=== PATIENT | male | born 2000 | race Caucasian/White ===

== ENCOUNTER 2022-08-12 00:51 | Emergency (ER) | payer OTHER, SELFPAY ==
[2022-08-12] VITALS (11 sets, daily range): BP systolic 121–139; BP diastolic 74–96; PULSE 75–89; RESP 16–18; TEMP 36.4–37.1; O2SAT 93–100; BMI 25.5
--- NOTE | 2022-08-12 01:00 | CRLHL7_ITS ---
For Patients: As a result of the Cures Act, medical imaging exams and procedure reports are released immediately into your electronic medical record. You may view this report before your referring provider. If you have questions, please contact your health care provider. INDICATION: Dislocation, shoulder injury TECHNIQUE: Shoulder radiograph 2 views left COMPARISON: None FINDINGS: Bone: No acute fractures or aggressive bone lesions are identified. Joint: Anterior inferior dislocation of the glenohumeral joint is noted. The acromioclavicular joint is unremarkable. Soft tissue: Unremarkable. The visualized hemithorax is unremarkable in appearance. No radiopaque foreign bodies are seen. IMPRESSION: 1. Anterior inferior dislocation of the glenohumeral joint is noted. Dictated by Raz Salinas MD @ 08/12/2022 1:25:06 AM Dictated by: Raz Salinas MD @ 08/12/2022 01:25:09 (Electronically Signed)
--- NOTE | 2022-08-12 01:14 | CRLHL7_ITS ---
For Patients: As a result of the Century Cures Act, medical imaging exams and procedure reports are released immediately into your electronic medical record. You may view this report before your referring provider. If you have questions, please contact your health care provider. INDICATION: Post reduction, shoulder injury, post-reduction TECHNIQUE: Shoulder radiograph 3 views left COMPARISON: 08/12/2022 FINDINGS: Bone: No acute fractures or aggressive bone lesions are identified. Joint: The glenohumeral joint has been reduced to anatomic alignment. The acromioclavicular joint is unremarkable. Soft tissue: Unremarkable. The visualized hemithorax is unremarkable in appearance. No radiopaque foreign bodies are seen. IMPRESSION: 1. The glenohumeral joint has been reduced to anatomic alignment. Dictated by Raz Salinas MD @ 08/12/2022 2:19:51 AM Dictated by: Raz Salinas MD @ 08/12/2022 02:19:55 (Electronically Signed)
--- NOTE | 2022-08-12 01:19 | ED.UPPEXIN ---
HPI - Extremity Injury (Upper) General Chief Complaint: Shoulder Injury/Pain Stated Complaint: Left Shoulder Injury Time Seen by Provider: 08/12/22 01:00 History of Present Illness HPI narrative: Patient is a healthy 21-year-old gentleman who was wrestling tonight with friend landing on his left arm. I felt a popping sensation in the left shoulder and now he has what appears to be a dislocated left shoulder. He has no neural muscular defects other than the dislocation. He has no head or neck injuries. He has no chest pain shortness a breath bruising there is a slight abrasion on the anterior aspect of the left shoulder but no other injuries are noted. Patient has had no previous dislocations is otherwise in excellent health. Related Data Home Medications Medication Instructions Recorded Confirmed No Known Home Medications 08/12/22 08/12/22 Allergies Allergy/AdvReac Type Severity Reaction Status Date / Time cephalexin Allergy Severe Anaphylaxis Verified 08/12/22 00:56 Sulfa (Sulfonamide Allergy Severe Anaphylaxis Verified 08/12/22 00:56 Antibiotics) latex Allergy Intermediate Hives Verified 08/12/22 00:56 Review of Systems Status of ROS: Reports: 10 or more systems reviewed and unremarkable except as noted in History and below PFSH PFSH Social History Smoking Status: Never smoker Do you use any of these nicotine containing products: None Second hand tobacco smoke exposure: No How often do you have a drink containing alcohol: monthly or less How many standard drinks containing alcohol do you have on a typical day: 1 or 2 How often do you have six or more drinks on one occasion: Never AUDIT-C Alcohol total score: 1 Non-prescribed substance use: denies use Exam Narrative: Exam Narrative: EXAM GENERAL: Patient appears comfortable and well. EYES: No scleral icterus. LYMPH: No supraclavicular or cervical lymphadenopathy. SKIN: Visible skin seen during exam normal or with benign process only. EXT: No dependent lower extremity pedal edema. Left shoulder appears to be anteriorly he displaced. Normal neuromuscular and vascular exam otherwise. HEART: Regular rate and rhythm with no murmurs, rubs, or gallops. LUNGS: Clear to auscultation bilaterally with no crackles or wheezes. ABD: Soft, non tender, non distended. PSYCH: Good eye contact, speech is not pressured. Const: Vital Signs, click to edit/add: Vital Signs - 24 hr 08/12/22 00:57 04/08/23 00:59 Temperature 97.6 F 98.7 F Pulse Rate [Pulse Oximeter] 88 87 Respiratory Rate 16 Blood Pressure [Le ft Upper Arm] 137/96 H Blood Pressure [Ri ght Upper Arm] 137/96 H Pulse Oximetry 100 100 Oxygen Delivery Me thod Room Air Room Air Course Course Hospital Course: X-ray series of the left shoulder is pending. Vital Signs Vital signs: Initial Vital Signs Temperature 97.6 F 08/12/22 00:57 Temperature Source Temporal Artery Scan 08/12/22 00:57 Pulse Rate 88 08/12/22 00:57 Pulse Rhythm Regular 08/12/22 00:57 Respiratory Rate 16 08/12/22 00:57 Blood Pressure 137/96 H 08/12/22 00:57 Blood Pressure Mean 109 08/12/22 00:57 Pulse Oximetry 100 08/12/22 00:57 Oxygen Delivery Method Room Air 08/12/22 00:57 Vital Signs Temperature 97.6 F 08/12/22 00:57 Pulse Rate 88 08/12/22 00:57 Respiratory Rate 16 08/12/22 00:57 Blood Pressure 137/96 H 08/12/22 00:57 Pulse Oximetry 100 08/12/22 00:57 Oxygen Delivery Method Room Air 08/12/22 00:57 Temperature 98.7 F 08/12/22 00:59 Pulse Rate 87 08/12/22 00:59 Respiratory Rate 16 08/12/22 00:57 Blood Pressure 137/96 H 08/12/22 00:59 Pulse Oximetry 100 08/12/22 00:59 Oxygen Delivery Method Room Air 08/12/22 00:59 MDM - Extremity Injury (Upper) MDM Narrative Medical decision making narrative: Patient is a 21-year-old gentleman who dislocated his left shoulder which is seen on x-ray upon mind radiology review. Patient is otherwise uninjured. He had eaten approximately 2-3 hours ago and was not a candidate for propofol. Patient was given 4 Versed no 100 of fentanyl and was suitable anesthesia using the traction countertraction method is able to successfully reduce his shoulder dislocation. Is placed in a shoulder sling and was instructed on care of his shoulder. He will follow up with his doctor back in college on a p.r.n. basis and with Orthopedics if further problems develop. He will advance his activity as tolerated and avoid risky activities which are likely dislocated shoulder again. Differential Diagnosis Differential diagnosis: Likely dislocation of shoulder, fracture of humerus and fracture of clavicle Discharge Plan Discharge Clinical Impression: Anterior shoulder dislocation Patient Disposition: Home, Self-Care Condition: Stable Instructions: Shoulder Dislocation (ED) Additional Instructions: Sling as directed Careful advancement of his activities. Follow-up with orthopedics as needed. Activity Level: No Restrictions Discharge Diet: Regular Prescriptions: No Action No Known Home Medications Stand Alone Forms: [employer] Info Instructions
--- OUTSIDE RECORDS SUMMARY | 2022-08-12 01:26 | XMS_ITS | Continuity of Care Document ---
Author Name Unknown Organization [facility] Address [facility] [address] [place] [address]- Care Team Providers Care Carpet Tile Layer Name Role Phone Vince Rhodes MD Primary Care Physician Encounter 02/24/19 - 02/26/[address] [place], [place] [address] Encounter Diagnosis WCC (well child check)(Discharge Diagnosis) - 02/24/19 Immunization due(Discharge Diagnosis) - 02/24/19 Depression screen(Discharge Diagnosis) - 02/24/19 Encounter for screening examination for sexually transmitted disease(Discharge Diagnosis) - 02/24/19 BMI (body mass index), pediatric, 5% to less than 85% for age(Discharge Diagnosis) - 02/24/19 Scoliosis concern(Discharge Diagnosis) - 02/24/19 Well child check(Discharge Diagnosis) - 02/24/19 Scoliosis(Discharge Diagnosis) - 02/24/19 Attending Physician: Vince Rhodes MD Allergies, Adverse Reactions, Alerts Substance Reaction Severity Status cephalosporin Active sulfa drug Active Assessment and Plan Extracted from: Title:AAA 13-17 year check up/scoliosis Author:Vince Patel MD Date:02/24/19 Impression and Plan Diagnosis Well child check ([id number] Z00.129). Scoliosis ([id number] M41.9). Plan: Immunizations per schedule, We will follow-up his x-ray today. We'll contact back in touch after review the x-ray with radiology., His x-ray shows that his curve is increased to 20??. Because of the change and his age we will get him referred to orthopedics.. Diet: Age appropriate diet, Referral to dentist. Patient Instructions: Counseled: Discussed healthy eating habits, exercise, and school performance. Discussed importance of maintaining a healthy BMI. Stressed importance for healthy relationships., Regular Dental visits strongly recommended., Counseling given on Influenza Vaccination, risks and benefits discussed, VIS offered., Counseling given on HPV vaccine, risks and benefits discussed, VIS offered.. Immunizations Given and Recorded Vaccine Date Status Refusal Reason meningococcal conjugate vaccine 02/24/19 Given meningococcal conjugate vaccine 09/03/14 Given meningococcal group B vaccine 02/24/19 Given human papillomavirus vaccine 02/06/18 Given human papillomavirus vaccine 10/31/16 Given influenza virus vaccine, inactivated 03/08/15 Give n influenza virus vaccine, inactivated 1 03/02/07 Gi mery influenza virus vaccine, inactivated 2 04/03/05 Gi mery influenza virus vaccine, inactivated 3 04/09/03 Gi mery influenza virus vaccine, inactivated 4 03/10/03 Gi mery tetanus/diphth/pertuss (Tdap) adult/adol 09/03/14 Given Hep A, pediatric/adolescent 5 09/05/07 Given Hep A, pediatric/adolescent 6 10/10/06 Given DTaP 7 09/05/07 Given DTaP 8 03/10/03 Given DTaP 9 01/01/03 Given DTaP 10 02 Given IPV 11 09/05/07 Given IPV 12 05/28/03 Given IPV 13 01/01/03 Given IPV 14 02 Given MMR (measles/mumps/rubella) 15 09/05/07 Given MMR (measles/mumps/rubella) 16 08/31/03 Given varicella 17 10/10/06 Given varicella 18 08/31/03 Given pneumococcal (PCV7) 19 09/05/04 Given pneumococcal (PCV7) 20 03/10/03 Given pneumococcal (PCV7) 21 01/01/03 Given pneumococcal (PCV7) 22 02 Given DTaP-Hib 23 11/30/03 Given hepatitis B pediatric vaccine 24 05/28/03 Given Hep B-Hib 25 01/01/03 Given Hep B-Hib 26 02 Given 1Result Comment: Unknown Unit of Measure: UNKNOWNUNIT 2Result Comment: Unknown Unit of Measure: UNKNOWNUNIT 3Result Comment: Unknown Unit of Measure: UNKNOWNUNIT 4Result Comment: Unknown Unit of Measure: UNKNOWNUNIT 5Result Comment: Unknown Unit of Measure: UNKNOWNUNIT 6Result Comment: Unknown Unit of Measure: UNKNOWNUNIT 7Result Comment: Unknown Unit of Measure: UNKNOWNUNIT 8Result Comment: Unknown Unit of Measure: UNKNOWNUNIT 9Result Comment: Unknown Unit of Measure: UNKNOWNUNIT 10Result Comment: Unknown Unit of Measure: UNKNOWNUNIT 11Result Comment: Unknown Unit of Measure: UNKNOWNUNIT 12Result Comment: Unknown Unit of Measure: UNKNOWNUNIT 13Result Comment: Unknown Unit of Measure: UNKNOWNUNIT 14Result Comment: Unknown Unit of Measure: UNKNOWNUNIT 15Result Comment: Unknown Unit of Measure: UNKNOWNUNIT 16Result Comment: Unknown Unit of Measure: UNKNOWNUNIT 17Result Comment: Unknown Unit of Measure: UNKNOWNUNIT 18Result Comment: Unknown Unit of Measure: UNKNOWNUNIT 19Result Comment: Unknown Unit of Measure: UNKNOWNUNIT 20Result Comment: Unknown Unit of Measure: UNKNOWNUNIT 21Result Comment: Unknown Unit of Measure: UNKNOWNUNIT 22Result Comment: Unknown Unit of Measure: UNKNOWNUNIT 23Result Comment: Unknown Unit of Measure: UNKNOWNUNIT 24Result Comment: Unknown Unit of Measure: UNKNOWNUNIT 25Result Comment: Unknown Unit of Measure: UNKNOWNUNIT 26Result Comment: Unknown Unit of Measure: UNKNOWNUNIT Problem List Condition Effective Dates Status Health Status Inform ant Scoliosis(Confirmed) Active Diagnosis Diagnosis Type Effective Dates Health Status Clinical Service Informant [facility] (well child check) Discharge Diagnosis 02/24/19 Immunization due Discharge Diagnosis 02/24/19 Depression screen Discharge Diagnosis 02/24/19 Encounter for screening examination for sexually transmitted disease Discharge Diagnosis 02/24/19 BMI (body mass index), pediatric, 5% to less than 85% for age Discharge Diagnosis 02/24/19 Well child check Discharge Diagnosis 02/24/19 Non-Specified Scoliosis concern Discharge Diagnosis 02/24/19 Non-Specified Scoliosis Discharge Diagnosis 02/24/19 Non-Specified Vital Signs Most recent to oldest [Reference Range]: 1 Height Measured 65.51 in (02/24/19 3:47 PM) Weight Measured 140.6 lb (02/24/19 3:47 PM) Body Mass Index 23.03 kg/m2 (02/24/19 3:47 PM) BSA 1.72 m2 (02/24/19 3:47 PM) Blood Pressure [90-138/45-84 mmHg] 104/6 4mmHg (02/24/19 3:47 PM) Mean Arterial Pressure 77 mmHg (02/24/19 3:47 PM) Allergies Verified? Yes (02/24/19 3:47 PM) Medication History Verified? Yes (02/24/19 3:47 PM) Social History Social History Type Response Smoking Status Never smoker; Concer ns about tobacco use in household: No entered on: 10/31/16
--- OUTSIDE RECORDS SUMMARY | 2022-08-12 01:26 | XMS_ITS | Continuity of Care Document ---
Author Name Unknown Organization [facility] Address [facility] [address] [place] [address]- Care Team Providers Care Platen Drier Operator Name Role Phone Vince Rhodes MD Primary Care Physician Encounter 04/21/20 - 04/23/[address] [place], [place] [address] Encounter Diagnosis Left foot pain(Discharge Diagnosis) - 04/21/20 Well child check(Discharge Diagnosis) - 04/21/20 WCC (well child check)(Discharge Diagnosis) - 04/21/20 Immunization due(Discharge Diagnosis) - 04/21/20 Depression screen(Discharge Diagnosis) - 04/21/20 Encounter for screening examination for sexually transmitted disease(Discharge Diagnosis) - 04/21/20 Attending Physician: Vince Rhodes MD Referring Physician: Vince Rhodes MD Allergies, Adverse Reactions, Alerts Substance Reaction Severity Status cephalosporin Active sulfa drug Active Assessment and Plan Extracted from: Title:AAA 13-17 year check u p/left foot injury Author:Vince Rhodes MD Date:04/21/20 Impression and Plan Diagnosis Well child check ([id number] Z00.129). Left foot pain ([id number] M79.672). Plan: Immunizations per schedule. Diet: Age appropriate diet, Referral to dentist. Patient Instructions: Counseled: Discussed healthy eating habits, exercise, and school performance. Discussed importance of maintaining a healthy BMI. Stressed importance for healthy relationships., Regular Dental visits strongly recommended., Counseling given on Influenza Vaccination, risks and benefits discussed, VIS offered., Counseling given on HPV vaccine, risks and benefits discussed, VIS offered., Reviewed his x-ray. His x-ray has a large sesamoid bone present. There does not appear to be an acute fracture. We will review this with radiology. If radiology feels there is anything acute will send immediately to orthopedics otherwise we will have him go in 5 to 7 days to orthopedics if his pain is still persisting. Recommended ice and elevation. Discussed Montiel Virus crisis and ways to stay mentally and physically healthy including regular bedtime and sleep cycles, structure and routine with school work on a daily basis. Regular exercise, outdoors if possible everyday. Eating whole foods and monitoring electronic time. Make time for regular laughter. Does relate to intermittent vaping. We discussed the importance of stopping this immediately.. Functional Status 04/21/20 Recent Travel History No recent travel Family Member Travel History No recent t ravel Other Exposure to Infectious Disease Unk nown Immunizations Given and Recorded Vaccine Date Status Refusal Reason influenza virus vaccine, inactivated 04/21/20 Give n influenza virus vaccine, inactivated 03/08/15 Give n influenza virus vaccine, inactivated 1 03/02/07 Gi mery influenza virus vaccine, inactivated 2 04/03/05 Gi mery influenza virus vaccine, inactivated 3 04/09/03 Gi mery influenza virus vaccine, inactivated 4 03/10/03 Gi mery meningococcal group B vaccine 04/21/20 Given meningococcal group B vaccine 02/24/19 Given meningococcal conjugate vaccine 02/24/19 Given meningococcal conjugate vaccine 09/03/14 Given human papillomavirus vaccine 02/06/18 Given human papillomavirus vaccine 10/31/16 Given tetanus/diphth/pertuss (Tdap) adult/adol 09/03/14 Given Hep A, [...] Effective Dates Health Status Clinical Service Informant [facility] (well child check) Discharge Diagnosis 04/21/20 Encounter for screening examination for sexually transmitted disease Discharge Diagnosis 04/21/20 Immunization due Discharge Diagnosis 04/21/20 Depression screen Discharge Diagnosis 04/21/20 Left foot pain Discharge Diagnosis 04/21/20 Well child check Discharge Diagnosis 04/21/20 Non-Specified Procedures Procedure Date Related Diagnosis Body Site Status Collection of capillary bloo d specimen (eg, finger, heel, ear stick) 04/21/20 Co mpleted Results Laboratory List Name Date Cholesterol (SPA) (Chol (SPA)) 04/21/20 HGB (SPA) (Hgb (SPA)) 04/21/20 Most recent to oldest [Reference Range]: 1 Hgb [13.0-16.0 g/dL] 16.7 g/dL *HI* (04/21/20 11:34 AM) Cholesterol [<=175 mg/dL] 108 mg/dL (04/21/20 11:34 AM) Vital Signs Most recent to oldest [Reference Range]: 1 Height Measured 65.75 in (04/21/20 10:56 AM) Weight Measured 145 lb (04/21/20 10:56 AM) Body Mass Index 23.58 kg/m2 (04/21/20 10:56 AM) BSA 1.74 m2 (04/21/20 10:56 AM) Blood Pressure [90-138/45-84 mmHg] 115/7 3mmHg (04/21/20 10:56 AM) Mean Arterial Pressure 87 mmHg (04/21/20 10:56 AM) Peripheral Pulse Rate [55-90 bpm] 66 bpm (04/21/20 10:56 AM) Allergies Verified? Yes (04/21/20 10:56 AM) Medication History Verified? Yes (04/21/20 10:56 AM) Social History Social History Type Response Smoking Status Never (less than 100 in lifetime); Concerns about tobacco use in household: No entered on: 04/21/20 Sex Male
--- OUTSIDE RECORDS SUMMARY | 2022-08-12 01:27 | XMS_ITS | Continuity of Care Document ---
Author Name Unknown Organization [facility] [address] [facility] Address [facility] [address] [place] [address]- Care Team Providers Care Second Ride Fare Collector Name Role Phone Vince Rhodes MD Primary Care Physician [phone] Encounter 02/06/18 - 02/08/[address] [place], [place] [address] Encounter Diagnosis Well child check(Discharge Diagnosis) - 02/06/18 Immunization due(Discharge Diagnosis) - 02/06/18 Body mass index 5th to < 85th percentile, pediatric(Discharge Diagnosis) - 02/06/18 Depression screen(Discharge Diagnosis) - 02/06/18 Scoliosis(Discharge Diagnosis) - 02/06/18 Well child check(Discharge Diagnosis) - 02/06/18 Attending Physician: Vince Rhodes MD Allergies, Adverse Reactions, Alerts Substance Reaction Severity Status cephalosporin Active sulfa drug Active Assessment and Plan Extracted from: Title:AAA 13-17 year check up Author:Vince Rhodes MD Date:02/06/18 Impression and Plan Diagnosis Well child check ([id number] Z00.129). Scoliosis (ISU03-WN M41.9). Plan: Immunizations per schedule, We will review his x-ray with radiology. They will monitor his blood that is intermittent only on toilet paper. Is likely that this is a fissure. They will follow up if this persist. He diarrhea or other gastrointestinal symptoms they will call as well.. Diet: Age appropriate diet, Referral to dentist. Patient Instructions: Counseled: Discussed healthy eating habits, exercise, and school performance. Discussed importance of maintaining a healthy BMI. Stressed importance for healthy relationships., Regular Dental visits strongly recommended., Counseling given on Influenza Vaccination, Counseling given on HPV vaccine. Immunizations Given and Recorded Vaccine Date Status Refusal Reason human papillomavirus vaccine 02/06/18 Given human papillomavirus vaccine 10/31/16 Given influenza virus vaccine, inactivated 03/08/15 Give n influenza virus vaccine, inactivated 1 03/02/07 Gi mery influenza virus vaccine, inactivated 2 04/03/05 Gi mery influenza virus vaccine, inactivated 3 04/09/03 Gi mery influenza virus vaccine, inactivated 4 03/10/03 Gi mery meningococcal conjugate vaccine 09/03/14 Given tetanus/diphth/pertuss (Tdap) adult/adol 09/03/14 Given Hep [...] Unknown Unit of Measure: UNKNOWNUNIT Problem List Diagnosis Diagnosis Type Effective Dates Health Status Clinical Service Informant Scoliosis Discharge Diagnosis 02/06/18 Immunization due Discharge Diagnosis 02/06/18 Depression screen Discharge Diagnosis 02/06/18 Body mass index 5th to < 85th percentile, pediatric Discharge Diagnosis 02/06/18 Well child check Discharge Diagnosis 02/06/18 Well child check Discharge Diagnosis 02/06/18 Non-Specified Procedures Procedure Date Related Diagnosis Body Site Status Collection of capillary bloo d specimen (eg, finger, heel, ear stick) 02/06/18 Co mpleted Results Chemistry Most recent to oldest [Reference Range]: 1 Cholesterol [<=175 mg/dL] 118 mg/dL (02/06/18 9:57 AM) Hematology Most recent to oldest [Reference Range]: 1 Hgb [13.0-16.0 g/dL] 15.2 g/dL (02/06/18 9:57 AM) Vital Signs Most recent to oldest [Reference Range]: 1 Height Measured 64.5 in (02/06/18 9:14 AM) Weight Measured 122.6 lb (02/06/18 9:14 AM) Body Mass Index 20.72 kg/m2 (02/06/18 9:14 AM) BSA 1.59 m2 (02/06/18 9:14 AM) Blood Pressure [90-138/45-84 mmHg] 113/6 8mmHg (02/06/18 9:14 AM) Mean Arterial Pressure 83 mmHg (02/06/18 9:14 AM) Allergies Verified? Yes (02/06/18 9:14 AM) Medication History Verified? Yes (02/06/18 9:14 AM) Social History Social History Type Response Smoking Status Never smoker; Concer ns about tobacco use in household: No entered on: 10/31/16
--- OUTSIDE RECORDS SUMMARY | 2022-08-12 01:27 | XMS_ITS | Continuity of Care Document ---
Author Name Unknown Organization [facility] Address [facility] [address] [place] [address]- Care Team Providers Care Senior Mainframe Developer Name Role Phone Vince Rhodes MD Primary Care Physician Encounter(s) 02/06/[address] [place], [place] [address] Attending Physician: Vince Rhodes MD Allergies, Adverse Reactions, Alerts Substance Reaction Severity Status cephalosporin Active sulfa drug Active Assessment and Plan Extracted from: Title:AAA 13-17 year check up Author:Vince Rhodes MD Date:10/31/16 Impression and Plan Diagnosis Well child check ([id number] Z00.129). Plan: Immunizations per schedule. Diet: Age appropriate diet, Referral to dentist. Patient Instructions: Counseled: Discussed healthy eating habits, exercise, and school performance. Discussed importance of maintaining a healthy BMI. Stressed importance for healthy relationships., Regular Dental visits strongly recommended.. Extracted from: Title:AAA 10-12 year [facility] Author:Sav Rhodes MD Date:09/03/14 Impression and Plan Diagnosis Routine child exam (ICD9 V20.2). Plan: Immunizations per schedule. Diet: Age appropriate diet, Referral to dentist, Discussed activity, screen time, sleep and good nutrition. Discussed importance of these relative to patient's BMI., Discussed puberty and growth., Regular Dental visits recommended.. Immunizations Given and Recorded Vaccine Date Status Refusal Reason human papillomavirus vaccine 10/31/16 Given influenza virus vaccine, inactivated 03/08/15 Give n influenza virus vaccine, inactivated 1 03/02/07 Gi mery influenza virus vaccine, inactivated 2 04/03/05 Gi mery influenza virus vaccine, inactivated 3 04/09/03 Gi mery influenza virus vaccine, inactivated 4 03/10/03 Gi mery meningococcal conjugate vaccine 4/30/15 Given tetanus/diphth/pertuss (Tdap) adult/adol 09/03/14 Given Hep [...] Effective Dates Health Status Clinical Service Informant Well child check Discharge Diagnosis 10/31/16 Non-Specified Body mass index 5th to < 85th percentile, pediatric Discharge Diagnosis 10/31/16 Depression screen Discharge Diagnosis 10/31/16 Immunization due Discharge Diagnosis 10/31/16 Well child check Discharge Diagnosis 10/31/16 Routine child exam Discharge Diagnosis 09/03/14 Vital Signs Most recent to oldest [Reference Range]: 1 2 3 Height Measured 61 in (10/31/16 10:45 AM) 56.5 in (09/03/14 3:55 PM) 54 in (08/29/12 11:39 AM) Weight Measured 95.6 lb (10/31/16 10:45 AM) 79.8 lb (09/03/14 3:55 PM) 68 lb (08/29/12 11:39 AM) Body Mass Index 18.06 kg/m2 (10/31/16 10:45 AM) 17.57 kg/m2 (09/03/14 3:55 PM) 16.39 kg/m2 (08/29/12 11:39 AM) BSA 1.36 m2 (10/31/16 10:45 AM) 1.2 m2 (09/03/14 3:55 PM) Blood Pressure [90-138/45-84 mmHg] 104/73mmHg (10/31/16 10:45 AM) Blood Pressure [77-126/40-81 mmHg] 109/68mmHg (09/03/14 3:55 PM) Mean Arterial Pressure 83 mmHg (10/31/16 10:45 AM) 82 mmHg (09/03/14 3:55 PM) Peripheral Pulse Rate [55-90 bpm] 101 bpm *HI* (10/31/16 10:45 AM) 59 bpm (09/03/14 3:55 PM) Allergies Verified? Yes (02/06/18 9:14 AM) Yes (10/31/16 10:45 AM) Yes (09/03/14 3:55 PM) Medication History Verified? Yes (02/06/18 9:14 AM) Yes (10/31/16 10:45 AM) Yes (09/03/14 3:55 PM) Social History Social History Type Response Smoking Status Never smoker; Concer ns about tobacco use in household: No entered on: 10/31/16
--- OUTSIDE RECORDS SUMMARY | 2022-08-12 01:27 | XMS_ITS | Continuity of Care Document ---
Author Name Unknown Organization [facility] Address [facility] [address] [place] [address]- Care Team Providers Care Memory Care Director Name Role Phone Vince Rhodes MD Primary Care Physician Encounter 02/06/18 - 02/08/[address] [place], [place] [address] Encounter Diagnosis Well child check(Discharge Diagnosis) - [...] Impression and Plan Diagnosis Well child check ([id number] Z00.129). Scoliosis ([id number] M41.9). Plan: Immunizations per schedule, We will [...]
[2022-08-12] MEDS: fentaNYL 100 MCG/2 ML inj IVP (01:40)
[2022-08-12] MEDS: MIDAZOLAM HCL 1 MG/ML inj 4 MG IVP (01:40)
== END 2022-08-12 02:37 | disposition home or self-care (01) ==
PROVIDERS: Emergency Provider Internal Medicine
DX: S43.005A Unspecified dislocation of left shoulder joint, initial encounter (principal)
CPT/HCPCS: 23655; 73030; 96374; 96375; 99283; 99284; J2250; J3010

== ENCOUNTER 2023-07-10 14:05 | Outpatient (RCR) | payer OTHER, SELFPAY | END 2023-09-18 15:02 | disposition home or self-care (01) | PROVIDERS: Visit Provider Orthopaedic Surgery | DX: Z98.890 Other specified postprocedural states (principal); M25.512 Pain in left shoulder; Z74.09 Other reduced mobility; R29.898 Other symptoms and signs involving the musculoskeletal system; Z51.89 Encounter for other specified aftercare | CPT/HCPCS: 97110; 97161 ==